=== PATIENT | female | born 1980 | race Caucasian/White ===

== ENCOUNTER 2017-06-02 13:17 | Emergency (ER) | payer MEDICAID ==
[~2017-06-02] VITALS: Ht 157.5 cm; Wt 80.0 kg
[2017-06-02 21:26] LABS: CLARITY URINE CLEAR (CLEAR); COLOR URINE YELLOW (YELLOW); GLUCOSE URINE NEGATIVE (NEGATIVE); KETONES URINE NEGATIVE (NEGATIVE); LEUKOCYTE ESTERASE URINE NEGATIVE (NEGATIVE); NITRITE URINE NEGATIVE (NEGATIVE); OCCULT BLOOD URINE NEGATIVE (NEGATIVE); PROTEIN URINE NEGATIVE (NEGATIVE); SPECIFIC GRAVITY URINE 1.027 (1.005-1.030); UROBILINOGEN URINE 0.2 E.U./dL (0.2-1.0)
[2017-06-02 21:41] LABS: PROTHROMBIN TIME 10.8 sec (9.4-11.6)
[2017-06-02 21:42] LABS: CHLORIDE 109 mEq/L (98-107)
[2017-06-02 21:44] LABS: BASOPHILS % 0.6 % (0.0-2.0); CARBON DIOXIDE 25 mEq/L (21-32); EOSINOPHILS % 2.4 % (0.0-5.0); HEMATOCRIT. 36.9 % (36.0-48.0); HEMOGLOBIN. 12.4 g/dL (12.0-16.0); LYMPHOCYTES % 31.5 % (20.0-50.0); MEAN CORPUSCULAR HEMOGLOBIN 29.4 pg (28.0-32.0); MEAN CORPUSCULAR VOLUME 87.3 fL (81.0-99.0); MEAN PLATELET VOLUME 8.4 fl (7.4-10.4); MONOCYTES % 6.4 % (2.0-8.0); NEUTROPHILS % 59.1 % (40.0-76.0); PLATELET 330 x1000/uL (130-400); RED BLOOD CELL COUNT 4.23 mill/uL (4.2-5.4); RED CELL DISTRIBUTION WIDTH 12.5 % (11.6-14.6)
[2017-06-02 22:10] LABS: HCG SCREEN NEGATIVE
[2017-06-02 22:20] VITALS: BP 116/69
[2017-06-02] MEDS ORDERED: KETOROLAC 30MG/ML VIAL IM ONE (23:00)
== END 2017-06-02 23:28 | disposition home or self-care (01) ==
LOC: ER 13:24
DX: J06.9 Acute upper respiratory infection, unspecified (principal); R05 Cough; R11.2 Nausea with vomiting, unspecified; R94.31 Abnormal electrocardiogram [ECG] [EKG]
CPT/HCPCS: 36415; 71020; 80053; 81003; 83880; 84703; 85025; 85610; 93005; 96372; 99285; J1885

== ENCOUNTER 2017-08-20 15:10 | Emergency (ER) | payer MEDICAID ==
[~2017-08-20] VITALS: Ht 154.9 cm; Wt 86.0 kg
[2017-08-20] MEDS ORDERED: LORAZEPAM 2MG/ML CPJ IV ONE (21:30)
[2017-08-20] MEDS ORDERED: ONDANSETRON HCL 4MG/2ML VIAL IV STA (21:30)
[2017-08-20] MEDS ORDERED: MORPHINE SULFATE 4 MG/ML CPJ (NOT FOR IM USE) IV ONE (21:30)
[2017-08-20] MEDS ORDERED: KETOROLAC 30MG/ML VIAL IV STA (21:30)
[2017-08-20 22:07] LABS: BASOPHILS % 0.9 % (0.0-2.0); HEMATOCRIT. 34.8 % (36.0-48.0); HEMOGLOBIN. 11.8 g/dL (12.0-16.0); MEAN CORPUSCULAR HEMOGLOBIN 30.3 pg (28.0-32.0); MEAN CORPUSCULAR VOLUME 89.2 fL (81.0-99.0); MEAN PLATELET VOLUME 8.8 fl (7.4-10.4); MONOCYTES % 6.5 % (2.0-8.0); NEUTROPHILS % 57.6 % (40.0-76.0); PLATELET 274 x1000/uL (130-400); RED BLOOD CELL COUNT 3.91 mill/uL (4.2-5.4); RED CELL DISTRIBUTION WIDTH 13.1 % (11.6-14.6)
[2017-08-20 22:18] LABS: D-DIMER 0.25 mg/L FEU (<0.50); PARTIAL THROMBOPLASTIN TIME 29.4 sec (23.4-31.0); PROTHROMBIN TIME 10.7 sec (9.4-11.6)
[2017-08-20 22:23] LABS: CARBON DIOXIDE 26 mEq/L (21-32); CHLORIDE 107 mEq/L (98-107); CREATINE KINASE 122 IU/L (26-192)
[2017-08-20 22:24] LABS: TROPONIN I < 0.02 ng/mL (0.00-0.04)
[2017-08-20 22:28] LABS: HCG SCREEN NEGATIVE
[2017-08-21 03:20] VITALS: BP 121/71
== END 2017-08-21 03:21 | disposition home or self-care (01) ==
LOC: ER 15:52
DX: R07.89 Other chest pain (principal)
CPT/HCPCS: 36415; 71010; 80053; 82550; 83690; 83880; 84443; 84484; 84703; 85025; 85379; 85610; 85730; 93005; 96374; 96375; 99285; J1885; J2060; J2270; J2405; Z7610